=== PATIENT | female | born 1975 | race Caucasian/White ===

== ENCOUNTER 2017-10-08 22:32 | Emergency (ER) | payer MEDICAID ==
[2017-10-08] MEDS ORDERED: NS(*) 0.9% 1000 ML BAG 1,000 ML IV ONE ×2 (23:04→23:10)
[2017-10-08] MEDS ORDERED: MAG HYD/AL HYD/SIMETH 30ML UDC PO ONE (23:10)
[2017-10-08] MEDS ORDERED: LIDOCAINE 2% VISC SLN 15ML UDC PO ONE (23:10)
[2017-10-08] MEDS ORDERED: HYDROmorphone* 1 MG/ML 1 MG/ML ML IVP ONE (23:10)
[2017-10-08] MEDS ORDERED: ONDANSETRON 4 MG/2 ML VIAL IVP ONE (23:10)
[2017-10-08] MEDS ORDERED: ATRO/SCOPOL/HYOSCY/PB 5 ML ELX PO ONE (23:10)
[2017-10-08 23:14] LABS: PLATELET COUNT, AUTOMATED 257 K/uL (150-450)
[2017-10-08] MEDS ORDERED: IOPAMIDOL 76% 100 ML INFUS BTL 100 ML ONE (23:29)
[2017-10-08] MEDS ORDERED: LOR1 (23:34)
[2017-10-08] MEDS ORDERED: LISI5TAB25 PO (23:34)
[2017-10-08] MEDS ORDERED: INSULIN PUMP (23:34)
[2017-10-08] MEDS ORDERED: SIMV-49 PO (23:34)
[2017-10-08] MEDS ORDERED: PREG300C14 PO (23:34)
[2017-10-08 23:43] LABS: INR 0.99
[2017-10-09] MEDS ORDERED: INSULIN ASPART 100 UN/ML VIAL SUBQ ONE ×2 (00:10→01:50)
[2017-10-09] MEDS ORDERED: NICOTINE 21 MG/24 HR PATCH TD ONE (01:15)
[2017-10-09] MEDS ORDERED: HYDROmorphone* 1 MG/ML 1 MG/ML ML IVP ONE (01:30)
--- NOTE | 2017-10-09 01:33 | RADIOLOGY IMAGING REPORT ---
FACILITY: [facility] [place] PATIENT NAME: Carina Marti : 1975 MR: [id number] V: [id number] EXAM DATE: ORDERING PHYSICIAN: ROSA PATINO TECHNOLOGIST: Location: [facility] [place] Patient: Carina Marti : 1975 Visit/Account:[id number] Date of Sevice: 10/08/2017 CT of the abdomen and pelvis with contrast: Indication: Abdominal pain. Technique: Helical CT was performed through the abdomen and pelvis following IV contrast enhancement with 75 cc of Isovue-370. Multiplanar reconstructions are reviewed. One of the following dose optimization techniques was utilized in the performance of this exam: Autom ated exposure control; adjustment of the mA and/or kV according to the patient's size; or use of an i terative reconstruction technique. Specific details can be referenced in the facility's radiology CT exam operational policy. Comparison: None. Lower lung mcneill: No focal parenchymal or pleural abnormality is identified. Liver: Normal in size, shape, and density. There is uniform enhancement of the venous structures. Gallbladder/biliary tree: There are surgical clips related to prior cholecystectomy. The bile ducts a re normal in caliber. Pancreas: Normal in size, shape, and density. Spleen: Normal in size and shape. Calcified granulomas are present. Adrenal glands: Within normal limits. Kidneys/urinary bladder: The kidneys are normal in size, shape, and density. There are no signs of ur inary tract calculus or obstruction. The bladder appears homogeneous and unremarkable. Intestinal structures: Unremarkable, as visualized. There are no signs of obstruction or focal inflam matory changes. The appendix is unremarkable, as visualized. Pelvis: There may be a small cyst in the left ovary. The adnexal structures and uterus are otherwise unremarkable, as visualized. There are no signs of inflammation or fluid in the pelvis. Aorta and vascular structures: There is mild atherosclerotic calcification in the aorta and iliac art eries. There is no evidence of aneurysm. Ascites or fluid collections: None seen. Skeletal structures: Intact and unremarkable. Impression: No acute process is identified in the abdomen or pelvis. Report Dictated By: Hieu Palumbo MD at 10/09/2017 1:16 AM Report E-Signed By: Hieu Palumbo MD at 10/09/2017 1:28 AM WSN:[id number]
--- NOTE | 2017-10-09 01:43 | ER Report ---
History and Physical Time Seen By MD: 00:10 Hx. of Stated Complaint: pT REPORTING SEVERE RIGHT SIDE PAIN. BEEN HOSPITALIZED BEFORE FOR THIS. HPI/ROS CHIEF COMPLAINT: Right-sided abdominal pain HISTORY OF PRESENT ILLNESS: Patient is a 41-year-old female here with complaints of right-sided abdominal pain which started shortly prior to arrival and is described as sharp, 10 out of 10 pain and associated with nausea. Patient reports that she had previously been evaluated for similar symptoms and was admitted. Patient is hemodynamically stable at time of evaluation, afebrile. Patient denies headache, blurred vision, chest pain, shortness of breath, dysuria, hematuria. REVIEW OF SYSTEMS: Constitutional: No fever, no chills. Eyes: No discharge. ENT: No sore throat. Cardiovascular: No chest pain, no palpitations. Respiratory: No cough, no shortness of breath. Gastrointestinal: + Severe right-sided abdominal pain, + nausea Genitourinary: No hematuria. Musculoskeletal: No back pain. Skin: No rashes. Neurological: No headache. Allergies: Coded Allergies: No Known Drug Allergies (Unverified , 10/08/17) Home Meds Active Scripts Ondansetron (ZOFRAN ODT) 4 Mg Tab.rapdis, 4 MG PO Q6H Y for NAUSEA/VOMITING, # 20 TAB.ANKIT 0 Refills Prov:ROSA PATINO DO 10/09/17 Oxycodone Hcl/Acetaminophen (PERCOCET 5-325 MG TABLET) 1 Each Tablet, 1 EACH PO Q4H Y for PAIN, #12 TAB 0 Refills Prov:ROSA PATINO DO 10/09/17 Reported Medications [Insulin Pump] No Conflict Check 10/08/17 Simvastatin (SIMVASTATIN) 20 Mg Tablet, 20 MG PO HS, TAB 10/08/17 Lisinopril (LISINOPRIL) 5 Mg Tablet, 5 MG PO QDAY, TAB 10/08/17 Pregabalin (LYRICA) 300 Mg Capsule, 300 MG PO BID, CAPSULE 10/08/17 Lorazepam (LORAZEPAM) 1 Mg Tab, TAB 10/08/17 Constitutional Vital Sign - Last 24 Hours 10/08/17 10/08/17 10/08/17 10/08/17 22:48 22:52 23:00 23:02 Temp 98.2 Pulse 78 71 Resp 16 B/P (MAP) 96/77 96/77 (83) 126/81 (96) Pulse Ox 95 96 O2 Delivery Room Air 10/08/17 10/08/17 10/08/17 10/08/17 23:15 23:17 23:30 23:32 Pulse 76 76 B/P (MAP) 113/90 (98) 108/76 (87) Pulse Ox 97 98 10/08/17 10/08/17 10/09/17 10/09/17 23:45 23:47 00:00 00:15 Pulse 78 75 B/P (MAP) 106/77 (87) 100/68 (79) 106/76 (86) Pulse Ox 95 97 10/09/17 10/09/17 10/09/17 10/09/17 00:45 01:00 01:39 01:45 Pulse 70 B/P (MAP) 122/78 (93) 104/80 (88) 118/84 (95) 130/80 (97) Pulse Ox 99 10/09/17 10/09/17 10/09/17 10/09/17 01:50 02:00 02:15 02:20 Pulse 91 79 B/P (MAP) 128/89 (102) 115/75 (88) Pulse Ox 96 Physical Exam General Appearance: The patient is alert, has no immediate need for airway protection and no signs of toxicity. Moderate distress secondary to pain. Eyes: Pupils equal and round no pallor or injection. ENT, Mouth: Mucous membranes are moist. Respiratory: There are no retractions, lungs are clear to auscultation. Cardiovascular: Regular rate and rhythm. Gastrointestinal: + Severe tenderness to palpation of the right side of the abdomen, no rebound or guarding, no masses, bowel sounds are normal Neurological: No focal neurological deficits Skin: Warm and dry, no rashes. Musculoskeletal: Neck is supple non tender. Extremities are nontender, nonswollen and have full range of motion. DIFFERENTIAL DIAGNOSIS: After history and physical exam differential diagnosis was considered for abdominal pain including but not limited to appendicitis, cholecystitis, gastritis and urinary tract infection, musculoskeletal pain Medical Decision Making Data Points Result Diagram: 10/08/17 2303 10/08/17 2303 Laboratory Hematology Test 10/08/17 23:03 10/08/17 23:34 10/09/17 01:43 Red Blood Count 4.62 M/uL (4.17-5.56) Mean Corpuscular Volume 90.9 fL (80.0-96.0) Mean Corpuscular Hemoglobin 31.4 pg (26.0-33.0) Mean Corpuscular Hemoglobin Concent 34.5 g/dL (32.0-36.0) Red Cell Distribution Width 13.3 % (11.5-14.5) Mean Platelet Volume 9.5 fL (7.2-11.1) Neutrophils (%) (Auto) 47.4 % (39.4-72.5) Lymphocytes (%) (Auto) 43.1 % (17.6-49.6) Monocytes (%) (Auto) 7.7 % (4.1-12.4) Eosinophils (%) (Auto) 1.0 % (0.4-6.7) Basophils (%) (Auto) 0.8 % (0.3-1.4) Nucleated RBC Relative Count (auto) 0.1 /100WBC Neutrophils # (Auto) 3.4 K/uL (2.0-7.4) Lymphocytes # (Auto) 3.1 K/uL (1.3-3.6) Monocytes # (Auto) 0.6 K/uL (0.3-1.0) Eosinophils # (Auto) 0.1 K/uL (0.0-0.5) Basophils # (Auto) 0.1 K/uL (0.0-0.1) Nucleated RBC Absolute Count (auto) 0.01 K/uL Urine Color Yellow Urine Clarity Slightly-cloudy Urine pH 5.0 pH (4.8-9.5) Urine Specific [place] 1.017 Urine Protein Negative mg/dL (NEGATIVE) Urine Glucose (UA) 150 mg/dL (NEGATIVE) Urine Ketones Trace mg/dL (NEGATIVE) Urine Blood Negative (NEGATIVE) Urine Nitrite Negative (NEGATIVE) Urine Bilirubin Negative (NEGATIVE) Urine Urobilinogen 2.0 mg/dL (0.2-1.9) Urine Leukocyte Esterase Negative (NEGATIVE) Urine RBC None /HPF (0-2/HPF) Urine WBC <1 /HPF (0-5/HPF) Urine Squamous Epithelial Cells Many /LPF (</=FEW) Urine Bacteria Negative /HPF (NONE-FEW) Urine Mucus None /HPF (NONE-FEW) Sodium Level 134 mmol/L (137-145) Potassium Level 3.6 mmol/L (3.5-5.0) Chloride Level 99 mmol/L (98-107) Carbon Dioxide Level 24 mmol/L (22-31) Blood Urea Nitrogen 14 mg/dl (7-18) Creatinine 0.60 mg/dl (0.52-1.04) Glomerular Filtration Rate Calc > 60.0 Random Glucose 370 mg/dl (75-110) Calcium Level 8.7 mg/dl (8.4-10.2) Total Bilirubin 0.4 mg/dl (0.2-1.3) Aspartate Amino Transf (AST/SGOT) 27 U/L (0-35) Alanine Aminotransferase (ALT/SGPT) 25 U/L (0-56) Alkaline Phosphatase 70 U/L (0-126) Total Protein 6.5 g/dl (6.3-8.2) Albumin 3.9 g/dl (3.5-5.0) Prothrombin Time 13.1 seconds (12.0-14.4) Prothromb Time International Ratio 0.99 Activated Partial Thromboplast Time 33 seconds (23-35) Lipase 157 U/L (23-300) Human Chorionic Gonadotropin, Qual Negative (NEGATIVE) Whole Blood Glucose 318 mg/DL (75-110) Chemistry Test 10/08/17 23:03 10/08/17 23:34 10/09/17 01:43 White Blood Count 7.2 k/uL (4.5-11.0) Red Blood Count 4.62 M/uL (4.17-5.56) Hemoglobin 14.5 g/dL (12.0-16.0) Hematocrit 42.0 % (34.0-47.0) Mean Corpuscular Volume 90.9 fL (80.0-96.0) Mean Corpuscular Hemoglobin 31.4 pg (26.0-33.0) Mean Corpuscular Hemoglobin Concent 34.5 g/dL (32.0-36.0) Red Cell Distribution Width 13.3 % (11.5-14.5) Platelet Count 257 K/uL (150-450) Mean Platelet Volume 9.5 fL (7.2-11.1) Neutrophils (%) (Auto) 47.4 % (39.4-72.5) Lymphocytes (%) (Auto) 43.1 % (17.6-49.6) Monocytes (%) (Auto) 7.7 % (4.1-12.4) Eosinophils (%) (Auto) 1.0 % (0.4-6.7) Basophils (%) (Auto) 0.8 % (0.3-1.4) Nucleated RBC Relative Count (auto) 0.1 /100WBC Neutrophils # (Auto) 3.4 K/uL (2.0-7.4) Lymphocytes # (Auto) 3.1 K/uL (1.3-3.6) Monocytes # (Auto) 0.6 K/uL (0.3-1.0) Eosinophils # (Auto) 0.1 K/uL (0.0-0.5) Basophils # (Auto) 0.1 K/uL (0.0-0.1) Nucleated RBC Absolute Count (auto) 0.01 K/uL Urine Color Yellow Urine Clarity Slightly-cloudy Urine pH 5.0 pH (4.8-9.5) Urine Specific [place] 1.017 Urine Protein Negative mg/dL (NEGATIVE) Urine Glucose (UA) 150 mg/dL (NEGATIVE) Urine Ketones Trace mg/dL (NEGATIVE) Urine Blood Negative (NEGATIVE) Urine Nitrite Negative (NEGATIVE) Urine Bilirubin Negative (NEGATIVE) Urine Urobilinogen 2.0 mg/dL (0.2-1.9) Urine Leukocyte Esterase Negative (NEGATIVE) Urine RBC None /HPF (0-2/HPF) Urine WBC <1 /HPF (0-5/HPF) Urine Squamous Epithelial Cells Many /LPF (</=FEW) Urine Bacteria Negative /HPF (NONE-FEW) Urine Mucus None /HPF (NONE-FEW) Glomerular Filtration Rate Calc > 60.0 Calcium Level 8.7 mg/dl (8.4-10.2) Total Bilirubin 0.4 mg/dl (0.2-1.3) Aspartate Amino Transf (AST/SGOT) 27 U/L (0-35) Alanine Aminotransferase (ALT/SGPT) 25 U/L (0-56) Alkaline Phosphatase 70 U/L (0-126) Total Protein 6.5 g/dl (6.3-8.2) Albumin 3.9 g/dl (3.5-5.0) Prothrombin Time 13.1 seconds (12.0-14.4) Prothromb Time International Ratio 0.99 Activated Partial Thromboplast Time 33 seconds (23-35) Lipase 157 U/L (23-300) Human Chorionic Gonadotropin, Qual Negative (NEGATIVE) Whole Blood Glucose 318 mg/DL (75-110) Coagulation Test 10/08/17 23:34 Prothrombin Time 13.1 seconds Prothromb Time International Ratio 0.99 Activated Partial Thromboplast Time 33 seconds Urinalysis Test 10/08/17 23:03 Urine Color Yellow Urine Clarity Slightly-cloudy Urine pH 5.0 pH (4.8-9.5) Urine Specific [place] 1.017 Urine Protein Negative mg/dL (NEGATIVE) Urine Glucose (UA) 150 mg/dL (NEGATIVE) Urine Ketones Trace mg/dL (NEGATIVE) Urine Blood Negative (NEGATIVE) Urine Nitrite Negative (NEGATIVE) Urine Bilirubin Negative (NEGATIVE) Urine Urobilinogen 2.0 mg/dL (0.2-1.9) Urine Leukocyte Esterase Negative (NEGATIVE) Urine RBC None /HPF (0-2/HPF) Urine WBC <1 /HPF (0-5/HPF) Urine Squamous Epithelial Cells Many /LPF (</=FEW) Urine Bacteria Negative /HPF (NONE-FEW) Urine Mucus None /HPF (NONE-FEW) EKG/Imaging Imaging CT of the abdomen and pelvis with contrast: Indication: Abdominal pain. Technique: Helical CT was performed through the abdomen and pelvis following IV contrast enhancement with 75 cc of Isovue-370. Multiplanar reconstructions are reviewed. One of the following dose optimization techniques was utilized in the performance of this exam: Automated exposure control; adjustment of the mA and/ or kV according to the patient's size; or use of an iterative reconstruction technique. Specific details can be referenced in the facility's radiology CT exam operational policy. Comparison: None. Lower lung mcneill: No focal parenchymal or pleural abnormality is identified. Liver: Normal in size, shape, and density. There is uniform enhancement of the venous structures. Gallbladder/biliary tree: There are surgical clips related to prior cholecystectomy. The bile ducts are normal in caliber. Pancreas: Normal in size, shape, and density. Spleen: Normal in size and shape. Calcified granulomas are present. Adrenal glands: Within normal limits. Kidneys/urinary bladder: The kidneys are normal in size, shape, and density. There are no signs of urinary tract calculus or obstruction. The bladder appears homogeneous and unremarkable. Intestinal structures: Unremarkable, as visualized. There are no signs of obstruction or focal inflammatory changes. The appendix is unremarkable, as visualized. Pelvis: There may be a small cyst in the left ovary. The adnexal structures and uterus are otherwise unremarkable, as visualized. There are no signs of inflammation or fluid in the pelvis. Aorta and vascular structures: There is mild atherosclerotic calcification in the aorta and iliac arteries. There is no evidence of aneurysm. Ascites or fluid collections: None seen. Skeletal structures: Intact and unremarkable. Impression: No acute process is identified in the abdomen or pelvis. ED Course/Re-evaluation ED Course Patient is a 41-year-old female here with acute onset of right-sided abdominal pain which was severe in onset and has been constant per patient report. Patient reportedly had similar episode several months ago. CT imaging of the abdomen and pelvis showed no acute intra-abdominal abdominal pathology. Patient labs were notable for hyperglycemia however patient has a insulin pump in place and self bolused for correction. Patient was given 2 L normal saline bolus for hydration, Dilaudid for analgesia, Zofran for nausea and a GI cocktail. Patient was stable at time of discharge. I advised the patient to follow up with her family doctor in the next week. Patient was given scripts for Percocet and Zofran for symptom management. Decision to Disposition Date: Oct 09, 2017 Decision to Disposition Time: 02:41 Depart Departure Latest Vital Signs Vital Signs Date Time Temp Pulse Resp B/P (MAP) Pulse Ox O2 Delivery O2 Flow Rate FiO2 10/09/17 02:20 79 10/09/17 02:15 115/75 (88) 10/09/17 01:50 96 10/08/17 22:48 98.2 16 Room Air Impression: Primary Impression: Abdominal pain Condition: Improved Disposition: HOME OR SELF-CARE New Scripts Ondansetron (ZOFRAN ODT) 4 Mg Tab.rapdis 4 MG PO Q6H Y for NAUSEA/VOMITING, #20 TAB.ANKIT 0 Refills Prov: ROSA PATINO DO 10/09/17 Oxycodone Hcl/Acetaminophen (PERCOCET 5-325 MG TABLET) 1 Each Tablet 1 EACH PO Q4H Y for PAIN, #12 TAB 0 Refills Prov: ROSA PATINO DO 10/09/17 Patient Instructions: Abdominal Pain (ED), Acute Nausea and Vomiting (ED) Additional Instructions: Please follow up with your family doctor in the next 3 days. Please return promptly if you develop worsening abdominal pain, nausea, vomiting, fevers, inability to tolerate oral intake. You may take 1 tablet of Percocet every 6-8 hours as needed for pain. You may take 1 tablet of Zofran every 6-8 hours as needed for nausea. ROSA PATINO DO Oct 09, 2017 01:43
[2017-10-09 02:15] VITALS: BP 115/75
[2017-10-09] MEDS ORDERED: OXYC-865 PO (02:30)
[2017-10-09] MEDS ORDERED: ONDA4TAB PO (02:30)
== END 2017-10-09 02:41 | disposition home or self-care (01) ==
LOC: ER 22:45
DX: R10.9 Unspecified abdominal pain (principal); R73.9 Hyperglycemia, unspecified
CPT/HCPCS: 36416; 74177; 81001; 82948; 83690; 84703; 85025; 85610; 85730; 96361; 96374; 96375; 99284; J1170; J2405; J7030; Q9967; 82040; 82247; 82310; 82374; 82435; 82565; 82947; 84075; 84132; 84155; 84295; 84450; 84460; 84520